=== PATIENT | male | born 1960 | race Caucasian/White ===

== ENCOUNTER → 2019-04-25 | Day surgery (SDC) | payer BC ==
[2019-04-25 07:23] VITALS: BP 143/66; PULSE 60; RESP 18; TEMP 98.2
== END ==
LOC: CATHCVL 06:51
PROVIDERS: ATTEND Internal Medicine
DX: E11.621 Type 2 diabetes mellitus with foot ulcer (principal); L97.519 Non-pressure chronic ulcer of other part of right foot with unspecified severity; E11.69 Type 2 diabetes mellitus with other specified complication; M86.9 Osteomyelitis, unspecified; E11.42 Type 2 diabetes mellitus with diabetic polyneuropathy; I87.2 Venous insufficiency (chronic) (peripheral); Z72.0 Tobacco use; Z79.4 Long term (current) use of insulin; Z79.899 Other long term (current) drug therapy; Z83.3 Family history of diabetes mellitus
CPT/HCPCS: 36410; 76937; C1751

== ENCOUNTER 2020-06-14 12:12 | Emergency (ER) | payer BC ==
[2020-06-14] MEDS ORDERED: KETOROLAC 30 MG/ML 1 ML VIAL IM STA (12:56)
[2020-06-14] MEDS ORDERED: CEPHALEXIN 500 MG CAP PO STA (12:58)
[2020-06-14] MEDS ORDERED: CEPHALEXIN 500MG STARTER PACK 4 CAP BTL PO STA (12:58)
--- NOTE | 2020-06-14 13:16 | XR ---
EXAMINATION TYPE: XR foot complete RT DATE OF EXAM: 06/14/2020 COMPARISON: 05/05/2013 HISTORY: Swelling TECHNIQUE: Three views are submitted. FINDINGS: Postsurgical changes are noted. There is soft tissue edema. There is erosive changes involving the he ad of the fifth metatarsal. Distal phalanx fourth digit not well seen. Large calcaneal spur. No defin ite acute fracture. IMPRESSION: 1. Postsurgical changes. There is poor visualization of the distal phalanx of the fourth digit and er osive changes involving the head of the fifth metatarsal. Correlate with triple phase bone scan if th ere is concern for osteomyelitis.
--- NOTE | 2020-06-14 13:33 | ED ---
General Adult HPI - General Chief complaint: Skin/Abscess/Foreign Body Stated complaint: right foot infection, hx of diabetes Time Seen by Provider: 06/14/20 12:35 Source: patient, RN notes reviewed, old records reviewed Mode of arrival: ambulatory Limitations: no limitations - History of Present Illness Initial comments: 59-year-old male patient passed history of diabetes multiple surgeries on the right foot including great toe amputation. See chief complaint of cellulitis/infection. Reports it lasted days he's had some redness and swelling on the foot. Denies any fevers documented at home. Reports he has follow-up with his foot surgeon tomorrow. Denies any other complaints. Systemic: Pt denies fatigue, fever/chills. Pt denies weakness, night sweats, weight loss. Neuro: Pt denies headache, visual disturbances, syncope or pre-syncope. HEENT: Pt denies ocular discharge or irritation, otalgia, rhinorrhea, pharyngitis or notable lymphadenopathy. Cardiopulmonary: Pt denies chest pain, SOB, heart palpitations, dyspnea on exertion. Abdominal/GI: Pt denies abdominal pain, n/v/d. : Pt denies dysuria, burning w/ urination, frequency/urgency. Denies new onset urinary or bowel incontinence. MSK: Pt denies myalgia, loss of strength or function in extremities. Neuro: Pt denies new onset weakness, paresthesias. - Related Data Home Medications Medication Instructions Recorded Confirmed Atorvastatin [Lipitor] 10 mg PO DAILY 04/22/19 06/14/20 Empagliflozin [Jardiance] 25 mg PO DAILY 06/14/20 06/14/20 Insulin Aspart (For Pump) [NovoLOG 0.01 unit SQ-PUMP CONTINUOUS 06/14/20 06/14/20 (For Pump)] lisinopriL [Zestril] 5 mg PO DAILY 06/14/20 06/14/20 Previous Rx's Medication Instructions Recorded Cephalexin [Keflex] 500 mg PO Q6HR 10 Days #40 cap 06/14/20 Allergies Allergy/AdvReac Type Severity Reaction Status Date / Time No Known Allergies Allergy Verified 06/14/20 13:26 Review of Systems ROS Statement: Those systems with pertinent positive or pertinent negative responses have been documented in the HPI. ROS Other: All systems not noted in ROS Statement are negative. Past Medical History Past Medical History: Diabetes Mellitus History of Any Multi-Drug Resistant Organisms: MRSA Date of last positivie culture/infection: 2019 MDRO Source:: right foot Past Surgical History: Orthopedic Surgery Additional Past Surgical History / Comment(s): Right toe amputations Past Psychological History: No Psychological Hx Reported Smoking Status: Current every day smoker Past Alcohol Use History: None Reported Past Drug Use History: None Reported General Exam - General Exam Comments Initial Comments: Constitutional: NAD, AOX3, Pt has pleasant affect. HEENT: NC/AT, trachea midline, neck supple, no lymphadenopathy. Posterior pharynx non erythematous, without exudates. External ears appear normal, without discharge. Mucous membranes moist. Eyes PERRLA, EOM intact. There is no scleral icterus. No pallor noted. Cardiopulmonary: RRR, no murmurs, rubs or gallops, no JVD noted. Lungs CTAB in anterior and posterior park. No peripheral edema. Abdominal exam: Abdomen soft and non-distended. Abdomen non-tender to palpation in all 4 quadrants. Bowel sounds active in LLQ. No hepatosplenomegaly. No ecchymosis Neuro: CN II-XII grossly intact. No nuchal rigidity. No raccon eyes, no gamez sign, no hemotympanum. MSK: Mild amount of erythema noted to dorsal aspect of right foot. Mild amount of soft tissue swelling and erythema to lateral aspect of foot. Distal pulses intact and equal. Full active ROM in upper and lower extremities. Limitations: no limitations Course Vital Signs 06/14/20 06/14/20 12:29 13:48 Temperature 98.3 F 97.9 F Pulse Rate 81 78 Respiratory 16 17 Rate Blood Pressure 136/74 132/80 O2 Sat by Pulse 98 98 Oximetry Medical Decision Making - Medical Decision Making 59-year-old male patient passed history of diabetes multiple surgeries on the right foot including great toe amputation. See chief complaint of cellulitis/infection. Reports it lasted days he's had some redness and swelling on the foot. Denies any fevers documented at home. Reports he has follow-up with his foot surgeon tomorrow. Denies any other complaints. Pt VSS, afebrile. Physical exam displayed: Mild amount of erythema noted to dorsal aspect of right foot. Mild amount of soft tissue swelling and erythema to lateral aspect of foot. Distal pulses intact and equal. Full active ROM in upper and lower extremities. Plain film displayed post surgical changes. Poor visualization of the distal pharynx of the fourth digit and erosive changes involving the head of the fifth metatarsal. Clinical concern for osteomyelitis is low at this time. Patient declining any blood work which was recommended. Patient discharged with Keflex 4 times a day and follow-up with his surgeon tomorrow which is scheduled at 10 AM. He was provided a copy of the x-ray. We'll turn the ER if condition worsens. Case discussed with Dr. Brown. Disposition Clinical Impression: Cellulitis Disposition: HOME SELF-CARE Condition: Stable Instructions (If sedation given, give patient instructions): Cellulitis (ED), Diabetic Foot Ulcers (ED) Additional Instructions: Follow-up with surgeon tomorrow as directed. Take antibiotics as directed. Return to ER if condition worsens in any way. Follow up with PCP in 1-2 days. Prescriptions: Cephalexin [Keflex] 500 mg PO Q6HR 10 Days #40 cap Is patient prescribed a controlled substance at d/c from ED?: No Referrals: Cody Mo MD [Primary Care Provider] - 1-2 days
[2020-06-14 13:49] VITALS: BP 132/80; PULSE 78; RESP 17; TEMP 97.9
== END 2020-06-14 13:49 | disposition home or self-care (01) ==
LOC: EC 12:12
DX: L03.115 Cellulitis of right lower limb (principal); E11.9 Type 2 diabetes mellitus without complications; F17.200 Nicotine dependence, unspecified, uncomplicated; Z86.14 Personal history of Methicillin resistant Staphylococcus aureus infection; Z89.421 Acquired absence of other right toe(s); Z96.41 Presence of insulin pump (external) (internal)
CPT/HCPCS: 73630; 99284; 96372; J1885

== ENCOUNTER → 2020-06-19 | Day surgery (SDC) | payer BC ==
[2020-06-18 13:03] VITALS: BMI 27.7
[~2020-06-19] MED LIST: LIDOCAINE 1% INJ 10MG/ML (20 ML MDV) ONE; LIDOCAINE 1% INJ 10MG/ML (20 ML MDV) SQ ONE
[2020-06-19 11:54] LABS: Glucose,Whole Blood 140 mg/dL (75-99)
[2020-06-19 11:58] VITALS: BP 144/66; PULSE 66; RESP 16; TEMP 97.9
[2020-06-19 12:01] LABS: Basophils # (A) 0.1 k/uL (0-0.2); Basophils % (A) 1 %; Eosinophils # (A) 0.2 k/uL (0-0.7); Eosinophils % (A) 2 %; HCT 48.6 % (39.0-53.0); HGB 15.4 gm/dL (13.0-17.5); Lymphocytes # (A) 1.7 k/uL (1.0-4.8); Lymphocytes % (A) 24 %; MCHC 31.8 g/dL (31.0-37.0); MCV 94.3 fL (80.0-100.0); Mean Platelet Volume 7.9; Monocytes # (A) 0.5 k/uL (0-1.0); Monocytes % (A) 7 %; Neutrophils # (A) 4.3 k/uL (1.3-7.7); Neutrophils % (A) 62 %; Platelet Count 250 k/uL (150-450); RBC 5.15 m/uL (4.30-5.90); RDW 13.3 % (11.5-15.5); WBC 6.9 k/uL (3.8-10.6)
[2020-06-19 12:18] LABS: African American GFR (CKD) >90 (>60 ml/min/1.73 sqM); Anion Gap 7 mmol/L; Blood Urea Nitrogen 13 mg/dL (9-20); Carbon Dioxide 27 mmol/L (22-30); Chloride 104 mmol/L (98-107); Non-African American GFR(CKD) >90 (>60 ml/min/1.73 sqM); Potassium 4.7 mmol/L (3.5-5.1); Sodium 138 mmol/L (137-145)
--- NOTE | 2020-06-19 17:19 | IR ---
EXAMINATION TYPE: IR cvc insert >=5 years DATE OF EXAM: 06/19/2020 COMPARISON: NONE CLINICAL HISTORY: Osteomyelitis BAKER HELPER: Dr. Stefani Benjamin PROCEDURE: Maximal barrier technique utilized. After informed consent, the skin overlying the left brachial vein was localized with ultrasound and noted to be compressible and patent. An ultrasound image was obtai naresh and submitted in the patient's chart. Sterile technique utilized with the ultrasound machine. The skin overlying the left arm was prepped and draped and Lidocaine used for local anesthesia. Access w as gained to the vein under ultrasound guidance with a 21 gauge needle, however resistance was met wh en 0.018 inch wire was advanced. Additional attempt to gain access was unsuccessful. The skin over th e right arm was prepped and draped. The right brachial vein was localized with ultrasound, and a midl ine catheter was placed into the right brachial vein. Lidocaine used for local anesthesia of the righ t arm. A 0.018 inch wire was advanced via the midline catheter. A skin jonathan was made with a scalpel. Access site was dilated with Peel-Away sheath. 5 FR single lumen catheter tailored to the appropriate length of 45 cm and advanced such that the distal tip is at the cavoatrial junction. Spot image was obtained verifying PICC placement. Catheter was fixed to the skin and a sterile dressing was placed f ollowing hemostasis. Catheter was aspirated and flushed with saline. Patient was discharged from the radiology department in stable condition without immediate complication. Fluoro time: 0.6 minutes Fluoroscopic images obtained: 21 IMPRESSION: Status post ultrasound-guided and fluoroscopic-guided PICC placement, ready for use.
== END ==
LOC: CATHCVL 11:26
PROVIDERS: ATTEND Radiology Diagnostic Radiology
DX: M86.8X7 Other osteomyelitis, ankle and foot (principal); E11.69 Type 2 diabetes mellitus with other specified complication; L03.115 Cellulitis of right lower limb; L97.519 Non-pressure chronic ulcer of other part of right foot with unspecified severity; E11.42 Type 2 diabetes mellitus with diabetic polyneuropathy; F17.210 Nicotine dependence, cigarettes, uncomplicated; Z89.411 Acquired absence of right great toe; Z87.898 Personal history of other specified conditions; Z79.899 Other long term (current) drug therapy; Z79.4 Long term (current) use of insulin; Z79.2 Long term (current) use of antibiotics; Z83.3 Family history of diabetes mellitus
CPT/HCPCS: 36573; 80051; 82565; 84520; 85025; C1751 ×2; C1769 ×2; J2001

== ENCOUNTER → 2025-02-03 | Outpatient (CLI) | payer BC ==
--- NOTE | 2025-02-04 08:05 | MR ---
EXAMINATION TYPE: MR foot RT wo/w con DATE OF EXAM: 02/03/2025 7:08 PM COMPARISON: Right foot x-ray June 14, 2020. CLINICAL INDICATION: Male, 64 years old with history of M86.9 OSTEOMYELITIS, UNSPECIFIED, Rt foot swe lling x3 weeks, HX of Osteo IV Contrast: 9.5ml cc Gadobutrol (None if empty) CONTRAST: Standard multiplanar, multisequence MRI departmental protocol images were obtained without contrast a nd with 9.5ml mL intravenous Gadobutrol gadolinium contrast. FINDINGS: Amputation defect at the level of the distal first metatarsal is redemonstrated. There are now amputation defects at level of the mid to distal diaphysis of the second through fifth metatarsal s. There is a small rim-enhancing focal fluid collection along the plantar surface just below the level of the distant second metatarsal measuring 2.6 x 1.3 x 1.0 cm transversely sagittal image 13 and axia l image 14. Some enhancing tissue in the region of the remnant second metatarsal is seen. There is so me slight increased T2 signal in the second, third,, fourth, and fifth metatarsals without definitive osseous enhancement. Currently there is relative sparing of the remnant first metatarsal noted. Midfoot and hindfoot structures are preserved. IMPRESSION: Distal inflammatory change is present. There is a small focal ring-enhancing fluid collection suspici ous for abscess along the plantar surface of the remnant distal second metatarsal. There is osseous e ashley through the remnant second through fifth metatarsals which is suspicious for early acute osteomy elitis. [facility], , 02/04/2025 8:02 AM
== END | disposition home or self-care (01) ==
LOC: RADMRIMAIN 18:02
PROVIDERS: ATTEND Internal Medicine Infectious Disease
DX: M86.9 Osteomyelitis, unspecified (principal); R60.9 Edema, unspecified
CPT/HCPCS: 73720; A9585